=== PATIENT | male | born 1975 | race Caucasian/White ===

== ENCOUNTER 2018-05-13 12:35 | Emergency (ER) | payer OTHER ==
[2018-05-13 13:39] LABS: BASO % 0.3 % (0.0-2.0); EOS # 0.2 K/uL (0.0-0.7); EOS % 2.5 % (0.0-4.0); HEMOGLOBIN 15.4 g/dL (12.0-18.0); LYMPH # 1.2 K/uL (1.0-4.3); LYMPH % 14.6 % (20.0-40.0); MEAN CELL VOLUME 88.6 fL (80.0-94.0); MEAN CORPUSCULAR HEMOGLOBIN 30.4 pg (27.0-31.0); MEAN CORPUSCULAR HGB CONC 34.3 g/dL (33.0-37.0); MEAN PLATELET VOLUME 8.2 fL (7.2-11.7); MONO # 0.9 K/uL (0.0-0.8); MONO % 11.3 % (0.0-10.0); NEUT # 5.7 K/uL (1.8-7.0); NEUT % 71.3 % (50.0-75.0); RBC 5.06 Mil/uL (4.40-5.90); RED CELL DISTRIBUTION WIDTH 13.3 % (11.5-14.5)
[2018-05-13 13:46] LABS: SQUAMOUS EPITHIAL < 1 /hpf (0-5); URINE BILIRUBIN NEGATIVE (NEGATIVE); URINE BLOOD NEGATIVE (NEGATIVE); URINE CLARITY Clear (Clear); URINE COLOR Yellow (YELLOW); URINE GLUCOSE (UA) NORMAL (Normal); URINE LEUKOCYTE ESTERASE NEG Leu/uL (Negative); URINE PROTEIN NEGATIVE (NEGATIVE); URINE UROBILINOGEN NORMAL mg/dL (0.2-1.0)
[2018-05-13 14:03] LABS: ALB/GLOB RATIO 1.1 (1.0-2.1); ALBUMIN 4.3 g/dL (3.5-5.0); ALT/SGPT 54 U/L (21-72); AST/SGOT 33 U/L (17-59); BLOOD UREA NITROGEN 14 mg/dL (9-20); CALCIUM 9.6 mg/dl (8.6-10.4); GFR NON-AFRICAN AMERICAN > 60
--- NOTE | 2018-05-13 14:14 | C.PDOC ---
History Of Present Illness 42 year old male patient presents to the ER with c/o lightheadedness, dizziness and sleepiness for a couple of days. Patient reports he would fall asleep if he stops at a red light or if he is sitting on the couch. Patient states he is sleeping well, no anxiety or insomnia. Patient significantly snores. 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 Patient denies headache, fever, SOB, palpitation and tachycardia. Time Seen by Provider: 05/13/18 12:59 Chief Complaint (Nursing): Dizziness/Lightheaded History Per: Patient History/Exam Limitations: no limitations Onset/Duration Of Symptoms: Days Current Symptoms Are (Timing): Still Present Past Medical History Reviewed: Historical Data, Nursing Documentation, Vital Signs Vital Signs: Last Vital Signs Temp 98.9 F 05/13/18 14:33 Pulse 86 05/13/18 14:33 Resp 16 05/13/18 14:34 BP 129/83 05/13/18 14:33 Pulse Ox 95 05/13/18 14:33 - Medical History PMH: HTN, Hypercholesterolemia Family History: States: No Known Family Hx - Social History Hx Tobacco Use: No Hx Alcohol Use: Yes Hx Substance Use: No - Immunization History Hx Tetanus Toxoid Vaccination: No Hx Influenza Vaccination: Yes (last year) Hx Pneumococcal Vaccination: No Review Of Systems Except As Marked, All Systems Reviewed And Found Negative. Constitutional: Positive for: Other (sleepiness). Negative for: Fever Cardiovascular: Positive for: Light Headedness. Negative for: Palpitations, Other (tachycardic) Respiratory: Negative for: Shortness of Breath Neurological: Positive for: Dizziness. Negative for: Headache Psych: Positive for: Anxiety. Negative for: Other (insomnia) Physical Exam - Physical Exam Appears: Well, Non-toxic, No Acute Distress Skin: Normal Color, Warm, Dry Head: Atraumatic, Normacephalic Eye(s): bilateral: Normal Inspection, PERRL, EOMI Oral Mucosa: Moist Throat: Other (large adenoids and tonsils) Neck: Normal ROM, Supple Chest: Symmetrical, No Deformity Cardiovascular: Rhythm Regular Respiratory: Normal Breath Sounds Extremity: Normal ROM (x4), No Pedal Edema, No Deformity, No Swelling Extremity: Bilateral: Atraumatic Neurological/Psych: Oriented x3, Normal Speech ED Course And Treatment - Laboratory Results Result Diagrams: 05/13/18 13:35 09/03/18 13:35 O2 Sat by Pulse Oximetry: 96 (RA) Medical Decision Making Medical Decision Making: Impression: lightheadedness, dizziness and sleepiness Plans: -- blood work -- UA Reassess: Patient is resting comfortably. Lab results shows no anemia and electrolytes are fine. Patient is instructed to f/u with PMD for sleep lab referral. Disposition Counseled Patient/Family Regarding: Studies Performed, Need For Followup - Disposition Disposition: HOME/ ROUTINE Disposition Time: 14:12 Condition: STABLE Additional Instructions: Follow up with your doctor for referral to sleep lab for evaluation of possible sleep apnea. Instructions: Obstructive Sleep Apnea, Adult (DC) Forms: General Discharge Instructions, [facility] (Italian) - Clinical Impression Clinical Impression: Sleep apnea in adult - Scribe Statement The provider has reviewed the documentation as recorded by the Karynibdave Dougherty Do Provider Attestation: All medical record entries made by the Scribe were at my direction and personally dictated by me. I have reviewed the chart and agree that the record accurately reflects my personal performance of the history, physical exam, medical decision making, and the department course for this patient. I have also personally directed, reviewed, and agree with the discharge instructions and disposition.
[2018-05-13 14:34] VITALS: BP 129/83; PULSE 86; RESP 16; TEMP 98.9
[2018-05-13 15:27] VITALS: O2SAT 96
== END 2018-05-13 14:34 | disposition home or self-care (01) ==
LOC: C.ER 12:35
DX: G47.30 Sleep apnea, unspecified (principal)

== ENCOUNTER 2018-07-27 14:09 | Inpatient (IN) | payer OTHER ==
--- NOTE | 2018-07-27 14:10 | C.PDOC ---
History Of Present Illness 42 yr old male w/ hx of HTN, HLD, DM2 p/w abdominal pain described as throbbing, worse in LLQ. Started 3d ago and has progressed. No nausea vomiting or chest pain. Pt notes first time occurence of pain. Has not had a BM in the same time frame. No trauma or falls. No recent travel abroad. No diarrhea. No new or exotic foods. No urinary complaints. No testicular pain penile pain or rashes. No headache, nausea, vomiting or any other complaints. Time Seen by Provider: 07/27/18 14:10 Past Medical History - Medical History PMH: HTN, Hypercholesterolemia Family History: States: Unknown Family Hx - Social History Hx Tobacco Use: No Hx Alcohol Use: Yes Hx Substance Use: No - Immunization History Hx Tetanus Toxoid Vaccination: No Hx Influenza Vaccination: Yes (last year) Hx Pneumococcal Vaccination: No Review Of Systems Constitutional: Negative for: Fever, Chills, Sweats, Weakness Eyes: Negative for: Pain, Vision Change ENT: Negative for: Ear Pain, Ear Discharge, Nose Congestion, Mouth Pain, Throat Swelling Cardiovascular: Negative for: Chest Pain, Palpitations, Edema, Light Headedness Respiratory: Negative for: Cough, SOB with Excertion, Wheezing Gastrointestinal: Positive for: Abdominal Pain, Constipation. Negative for: Nausea, Vomiting, Diarrhea, Melena, Hematochezia, Hematemesis, Rectal Pain Genitourinary: Negative for: Dysuria, Frequency, Incontinence, Hematuria, Penile Discharge, Scrotal Pain Musculoskeletal: Negative for: Neck Pain, Shoulder Pain, Back Pain Skin: Negative for: Rash Neurological: Negative for: Weakness, Headache Psych: Negative for: Anxiety Physical Exam - Physical Exam Appears: Well, Non-toxic, No Acute Distress Skin: Normal Color, Warm Head: Atraumatic, Normacephalic Eye(s): bilateral: Normal Inspection, PERRL, EOMI Ear(s): Bilateral: Normal Nose: Normal Oral Mucosa: Moist Tongue: Normal Appearing Throat: Normal Neck: Normal, Normal ROM, Supple (no meningeal signs), Other Chest: Symmetrical, No Deformity Cardiovascular: Rhythm Regular Respiratory: Normal Breath Sounds Gastrointestinal/Abdominal: Soft, Tenderness (rlq, lla), No Mass, No Distention, No Guarding Back: Normal Inspection, No CVA Tenderness Extremity: Normal ROM, No Tenderness Neurological/Psych: Oriented x3, Normal Speech, Normal Cognition Gait: Steady ED Course And Treatment - Laboratory Results Result Diagrams: 07/28/18 09:24 07/28/18 09:24 Medical Decision Making Medical Decision Makin yr old male w/ hx of dm, htn, hld p/w abdominal pain constipation, pending CT. Given tachy will seek CT. Pt in NAD. Pending CT + labs NPO [address] Paged vice president medical affairs: Bedside. abx ordered as recommend- cipro flagyl 1750 Dr. Sotelo paged by vice president medical affairs [address] Sotelo: No response [address] Sotelo: No response 1900: Appreciate consult w/ [employer] + Dr. Keys - to be admitted to Dr. Keys service. Fluids. Ofirmev ordered given continued tachy and febrile. ABX continued. Pt in NAD, pain moderately improved, updated w/ plan, pt agreeable Disposition - Disposition Disposition: HOSPITALIZED Disposition Time: 18:20 Condition: GOOD - Clinical Impression Clinical Impression: Perforated bowel
[2018-07-27 14:21] VITALS: BMI 30.9
[2018-07-27] MEDS ORDERED: Iohexol 240 (50 ml) PO STA (14:31)
[2018-07-27] MEDS ORDERED: Sodium Chloride 0.9% 1,000 ML IV SCH (14:45)
[2018-07-27 14:47] LABS: BASO % 0.1 % (0.0-2.0); EOS % 0.1 % (0.0-4.0); HEMOGLOBIN 14.3 g/dL (12.0-18.0); LYMPH # 1.2 K/uL (1.0-4.3); LYMPH % 6.4 % (20.0-40.0); MEAN CELL VOLUME 87.2 fL (80.0-94.0); MEAN CORPUSCULAR HEMOGLOBIN 29.9 pg (27.0-31.0); MEAN CORPUSCULAR HGB CONC 34.3 g/dL (33.0-37.0); MEAN PLATELET VOLUME 8.2 fL (7.2-11.7); MONO # 2.1 K/uL (0.0-0.8); MONO % 11.5 % (0.0-10.0); NEUT # 14.7 K/uL (1.8-7.0); NEUT % 81.9 % (50.0-75.0); PLATELET COUNT 235 K/uL (130-400); RBC 4.79 Mil/uL (4.40-5.90); RED CELL DISTRIBUTION WIDTH 13.3 % (11.5-14.5)
[2018-07-27] MEDS ORDERED: Morphine 4 MG/ML VIAL ONE (14:49)
[2018-07-27] MEDS ORDERED: Sodium Chloride 0.9% 1,000 ML ONE (14:49)
[2018-07-27 15:00] LABS: ALT/SGPT 32 U/L (21-72); AST/SGOT 23 U/L (17-59); BLOOD UREA NITROGEN 11 mg/dL (9-20); CALCIUM 8.2 mg/dl (8.6-10.4); GFR NON-AFRICAN AMERICAN > 60; LIPASE 36 U/L (23-300)
[2018-07-27] MEDS ORDERED: Iohexol 240 (50 ml) ONE (15:01)
[2018-07-27 15:13] LABS: SQUAMOUS EPITHIAL < 1 /hpf (0-5); URINE BACTERIA RARE (<OCC); URINE BILIRUBIN NEGATIVE (NEGATIVE); URINE BLOOD 1+ (NEGATIVE); URINE CLARITY Hazy (Clear); URINE COLOR Amber (YELLOW); URINE GLUCOSE (UA) NORMAL (Normal); URINE LEUKOCYTE ESTERASE NEG Leu/uL (Negative); URINE PROTEIN 2+ mg/dL (NEGATIVE); URINE UROBILINOGEN NORMAL mg/dL (0.2-1.0)
[2018-07-27] MEDS ORDERED: Iodixanol 320 MG/ML 100 ML BOTTLE IV ONE (15:23)
[2018-07-27 15:30] LABS: ANISOCYTOSIS SLIGHT; BANDS 2 % (0-2); LARGE PLATELETS PRESENT; LYMPHOCYTE 7 % (20-40); MONOCYTE 12 % (0-10); NEUTROPHIL 79 % (50-75); PLATELET ESTIMATE NORMAL (NORMAL); TOTAL CELLS COUNTED 100; TOXIC GRANULATION PRESENT
--- NOTE | 2018-07-27 17:28 | CT ---
Date of service: 07/27/2018 PROCEDURE: CT Abdomen and Pelvis with intravenous contrast HISTORY: Abdominal pain COMPARISON: None. TECHNIQUE: Multiple contiguous axial images were performed through the abdomen and pelvis with the use of contrast. Subsequently, sagittal and coronal reformatted images were obtained. Radiation dose: Total exam DLP = 998.05 mGy-cm. This CT exam was performed using one or more of the following dose reduction techniques: Automated exposure control, adjustment of the mA and/or kV according to patient size, and/or use of iterative reconstruction technique. FINDINGS: LOWER THORAX: Scattered atelectasis at the lung bases. LIVER: Mild fatty infiltration liver. GALLBLADDER AND BILE DUCTS: Unremarkable. PANCREAS: Unremarkable. No gross lesion or ductal dilatation. SPLEEN: Unremarkable. ADRENALS: Unremarkable. No mass. KIDNEYS AND URETERS: 1.2 centimeter low-attenuation lesion seen in the midpole of the left kidney demonstrating a Hounsfield unit attenuation of 21, indeterminate. Additional subcentimeter hypodensities in the left kidney, too small to adequately characterize. VASCULATURE: Unremarkable. No aortic aneurysm. Aortic atherosclerotic calcification or mural plaque present. BOWEL: Few distended loops of small bowel seen within the upper abdomen. Sigmoid diverticulosis. Marked thickening of the sigmoid colon. In addition, there appears to be a moderate amount of fluid and fat stranding as well as a small amount of free intraperitoneal air at the level of the sigmoid colon. These findings would be concerning for a perforated acute diverticulitis. Additional etiologies included perforated colitis. Though less likely underlying perforated neoplasm cannot be excluded. Additional etiologies not excluded. Clinical correlation. Free air is noted underneath the right hemidiaphragm. APPENDIX: Probable reactive thickening of a partially imaged appendix. PERITONEUM: Free air and fluid noted within the abdomen and pelvis. LYMPH NODES: Shotty inguinal and para-aortic lymph nodes. BLADDER: Thick-walled urinary bladder. REPRODUCTIVE: Obscured. BONES: Degenerative changes in the spine. Large posterior disc osteophyte complex at the L4-5 level. Few lucencies in the L3 and L4 vertebral bodies. OTHER FINDINGS: None. IMPRESSION: Sigmoid diverticulosis. Marked thickening of the sigmoid colon. In addition, there appears to be a moderate amount of fluid and fat stranding as well as a small amount of free intraperitoneal air at the level of the sigmoid colon. These findings would be concerning for a perforated acute diverticulitis. Additional etiologies included perforated colitis. Though less likely underlying perforated neoplasm cannot be excluded. Additional etiologies not excluded. Clinical correlation. Free air is noted underneath the right hemidiaphragm. Additional findings as above.
[2018-07-27] MEDS ORDERED: Ciprofloxacin 400mg/200ml D5W 400 MG/200 ML BAG IVPB STA (17:40)
[2018-07-27] MEDS ORDERED: Sodium Chloride 0.9% 1,000 ML IV ONE (17:40)
[2018-07-27] MEDS ORDERED: metroNIDAZOLE IV 500 mg/100 ml 500 MG/100 ML BAG IVPB STA (17:40)
[2018-07-27] MEDS ORDERED: Ciprofloxacin 400mg/200ml D5W 400 MG/200 ML BAG IVPB ONE (17:59)
[2018-07-27] MEDS ORDERED: metroNIDAZOLE IV 500 mg/100 ml 500 MG/100 ML BAG ONE (18:00)
[2018-07-27] MEDS ORDERED: HYDROmorphone 0.5 mg/0.5 ml ISec IVP PRN (19:03)
[2018-07-27] MEDS ORDERED: Acetaminophen IV 1,000 MG in Premixed IV 1 EA IV ONE (19:11)
--- NOTE | 2018-07-27 19:16 | CP.PCM.HP ---
History of Present Illness - History of Present Illness History of Present Illness: GENERAL SURGERY HISTORY AND PHYSICAL FOR DR. GOMEZ 42yo M with PMHx of DM, HTN, hyperlipidemia presents to the ED with abdominal pain for 4-5 days. The pain is located in the bilateral lower abdomen and radiates to the groin. The pt took Milk of Mag and tylenol at home with no relief. The pain worsened last night. Pt vomited once this AM. No BM over past 4-5 days except for very small amount of diarrhea after milk of mag. Pt denies hx of constipation, diverticulosis or any abdominal issues. PMHx: DM, HTN, hyperlipidemia Surgeries: none Allergies: penicillins Medications: aspirin 81mg, metformin, ramipril, atorvastatin, vascepa Social hx: denies etoh, tobacco abuse or illicit drug use Fam hx: mother has ESRD, no malignancy in family Present on Admission - Present on Admission Any Indicators Present on Admission: No Review of Systems - Review of Systems All systems: reviewed and no additional remarkable complaints except (as per HPI) Past Patient History - Infectious Disease Hx of Infectious Diseases: None - Past Social History Smoking Status: Never Smoked - CARDIAC Hx Hypercholesterolemia: Yes Hx Hypertension: Yes - PSYCHIATRIC Hx Substance Use: No - SURGICAL HISTORY Hx Surgeries: No - ANESTHESIA Hx Anesthesia: No Meds Allergies/Adverse Reactions: Allergies Allergy/AdvReac Type Severity Reaction Status Date / Time Penicillins Allergy Verified 07/27/18 14:20 Physical Exam - Constitutional Appears: Non-toxic, No Acute Distress - Head Exam Head Exam: ATRAUMATIC, NORMAL INSPECTION - Eye Exam Eye Exam: EOMI, Normal appearance - Respiratory Exam Respiratory Exam: Clear to Auscultation Bilateral, NORMAL BREATHING PATTERN. absent: Wheezes, Respiratory Distress - Cardiovascular Exam Cardiovascular Exam: Tachycardia, REGULAR RHYTHM, +S1, +S2 - GI/Abdominal Exam GI & Abdominal Exam: Distended (mild distended), Tenderness (diffuse tenderness, greater in LLQ, suprapubic, RLQ). absent: Guarding, Rebound, Rigid - Psychiatric Exam Psychiatric exam: Normal Affect, Normal Mood - Skin Skin Exam: Dry, Normal Color, Warm Results - Vital Signs Recent Vital Signs: Last Vital Signs Temp 103.0 F H 07/27/18 18:45 Pulse 126 H 07/27/18 18:45 Resp 17 07/27/18 18:45 BP 133/78 07/27/18 18:45 Pulse Ox 97 07/27/18 18:45 - Labs Result Diagrams: 07/27/18 14:44 07/27/18 14:44 Labs: Laboratory Results - last 24 hr 07/27/18 07/27/18 07/27/18 14:44 14:44 14:57 WBC 18.0 H D RBC 4.79 Hgb 14.3 Hct 41.8 MCV 87.2 MCH 29.9 MCHC 34.3 RDW 13.3 Plt Count 235 MPV 8.2 Neut % (Auto) 81.9 H Lymph % (Auto) 6.4 L [facility] % (Auto) 11.5 H Eos % (Auto) 0.1 Baso % (Auto) 0.1 Neut # (Auto) 14.7 H Lymph # (Auto) 1.2 [facility] # (Auto) 2.1 H Eos # (Auto) 0.0 Baso # (Auto) 0.0 Neutrophils % (Manual) 79 H Band Neutrophils % 2 Lymphocytes % (Manual) 7 L Monocytes % (Manual) 12 H Toxic Granulation Present Platelet Estimate Normal Large Platelets Present Anisocytosis (manual) Slight Sodium 135 Potassium 3.6 Chloride 96 L Carbon Dioxide 26 Anion Gap 17 BUN 11 Creatinine 0.7 L Est GFR ( Amer) > 60 Est GFR (Non-Af Amer) > 60 Random Glucose 204 H Calcium 8.2 L Total Bilirubin 1.1 AST 23 ALT 32 Alkaline Phosphatase 80 Total Protein 8.0 Albumin 4.0 Globulin 4.0 H Albumin/Globulin Ratio 1.0 Lipase 36 Urine Color Gladis Urine Clarity Hazy Urine pH 6.0 Ur Specific [place] 1.027 Urine Protein 2+ H Urine Glucose (UA) Normal Urine Ketones 1+ H Urine Blood 1+ H Urine Nitrate Negative Urine Bilirubin Negative Urine Urobilinogen Normal Ur Leukocyte Esterase Neg Urine RBC (Auto) 3 Ur Squamous Epith Cells < 1 Urine Bacteria Rare Assessment & Plan - Assessment and Plan (Free Text) Assessment: 42yo M with PMHx of DM, HTN, hyperlipidemia who presented to the ED with abdominal pain and found to have micro perf of sigmoid diverticulitis vs colitis - Febrile to 103 - Ofirmev ordered by ED - Tachycardic, hypertensive - Leukocytosis WBC 18.0 - CT: sigmoid diverticulosis, marked thickening of sigmoid colon w/ moderate amount of fluid and fat stranding and small amount of free air at sigmoid and small free air at right diaphragm - strict NPO - IV fluid resuscitation - IV antibiotics: cipro & flagyl - Serial abdominal exams - Discussed plan with Dr. Massimo Shelton PGY-4
[2018-07-27] MEDS: Lactated Ringer's 1,000 ML IV SCH (19:33)
[2018-07-27 20:27] LABS: VENOUS BLOOD GAS BASE EXCESS 3.5 mmol/L (0.0-2.0); VENOUS BLOOD GAS PCO2 35 mmHg (40-60); VENOUS BLOOD GAS PO2 61 mm/Hg (30-55); VENOUS BLOOD PH 7.49 (7.32-7.43)
[2018-07-28] MEDS: Morphine 4 MG/ML VIAL IVP PRN ×2 (00:20→17:27)
[2018-07-28 00:54] LABS: VENOUS BLOOD GAS BASE EXCESS 4.2 mmol/L (0.0-2.0); VENOUS BLOOD GAS PCO2 44 mmHg (40-60); VENOUS BLOOD GAS PO2 39 mm/Hg (30-55); VENOUS BLOOD PH 7.43 (7.32-7.43)
[2018-07-28] MEDS: metroNIDAZOLE IV 500 mg/100 ml 500 MG/100 ML BAG IVPB SCH ×3 (02:07→17:22)
[2018-07-28] MEDS: Lactated Ringer's 1,000 ML IV SCH ×3 (02:26→10:52)
[2018-07-28] MEDS: Ciprofloxacin 400mg/200ml D5W 400 MG/200 ML BAG IVPB SCH ×2 (05:10→18:40)
[2018-07-28] MEDS: (Novolin R) Insulin Human Regular 100 units/ml vial SC SCH ×4 (07:52→21:57)
[2018-07-28 09:34] LABS: BASO % 0.2 % (0.0-2.0); EOS % 0.2 % (0.0-4.0); HEMOGLOBIN 12.5 g/dL (12.0-18.0); LYMPH # 1.1 K/uL (1.0-4.3); LYMPH % 6.2 % (20.0-40.0); MEAN CELL VOLUME 89.1 fL (80.0-94.0); MEAN CORPUSCULAR HEMOGLOBIN 29.7 pg (27.0-31.0); MEAN CORPUSCULAR HGB CONC 33.4 g/dL (33.0-37.0); MEAN PLATELET VOLUME 8.8 fL (7.2-11.7); MONO # 1.8 K/uL (0.0-0.8); MONO % 10.2 % (0.0-10.0); NEUT # 14.4 K/uL (1.8-7.0); NEUT % 83.2 % (50.0-75.0); PLATELET COUNT 208 K/uL (130-400); RBC 4.22 Mil/uL (4.40-5.90); WHITE BLOOD COUNT 17.3 K/uL (4.8-10.8)
--- NOTE | 2018-07-28 09:48 | CP.PCM.PN ---
Subjective - Date & Time of Evaluation Date of Evaluation: 07/28/18 Time of Evaluation: 07:00 - Subjective Subjective: ENERAL SURGERY PROGRESS NOTE FOR DR. GOMEZ Patient seen and examined at bedside. He states that his pain has improved and he mostly just has pain while getting out of bed. He ambulates to the bathroom. Denies nausea or vomiting. Overnight reports multiple trips to bathroom for non bloody diarrhea. Overnight: 1L urine output Objective - Vital Signs/Intake and Output Vital Signs (last 24 hours): Temp Pulse Resp BP Pulse Ox 99.3 F 107 H 20 138/84 95 07/28/18 07:00 07/28/18 08:00 07/28/18 07:00 07/28/18 07:00 07/28/18 07:00 Intake and Output: 07/28/18 07/28/18 06:59 18:59 Intake Total 1000 Balance 1000 - Medications Medications: Current Medications Hydromorphone HCl (Dilaudid) 0.5 mg IVP Q3 PRN PRN Reason: Pain, severe (8-10) Lactated Ringer's (Lactated Ringer's) 1,000 mls @ 150 mls/hr IV .Q6H40M [facility] Last Admin: 07/28/18 02:26 Dose: Not Given Ciprofloxacin (Cipro 400mg/200ml Dsw) 400 mg in 200 mls @ 133 mls/hr IVPB Q12H [facility]; Protocol Last Admin: 07/28/18 05:10 Dose: 133 mls/hr Metronidazole (Flagyl) 500 mg in 100 mls @ 100 mls/hr IVPB Q8H [facility]; Protocol Last Admin: 07/28/18 02:07 Dose: 100 mls/hr Influenza Virus Vaccine (Fluzone Quad [id number]) 60 mcg IM .ONCE ONE Stop: 07/29/18 10:01 Insulin Human Regular (Novolin R) 0 unit SC ACHS [facility]; Protocol Last Admin: 07/28/18 07:52 Dose: Not Given Morphine Sulfate (Morphine) 4 mg IVP Q4 PRN PRN Reason: Pain, moderate (4-7) Last Admin: 07/28/18 00:20 Dose: 4 mg Ondansetron HCl (Zofran Inj) 4 mg IVP Q4 PRN PRN Reason: Nausea/Vomiting Pneumococcal Polyvalent Vaccine (Pneumovax 23 Vaccine) 0.5 ml IM .ONCE ONE Stop: 07/29/18 10:01 - Labs Labs: 07/28/18 09:24 07/27/18 14:44 - Constitutional Appears: Non-toxic, No Acute Distress - Head Exam Head Exam: ATRAUMATIC, NORMAL INSPECTION - Eye Exam Eye Exam: EOMI, Normal appearance - Respiratory Exam Respiratory Exam: NORMAL BREATHING PATTERN. absent: Respiratory Distress - Cardiovascular Exam Cardiovascular Exam: +S1, +S2 - GI/Abdominal Exam GI & Abdominal Exam: Distended, Soft, Tenderness (tender diffusely, more in LLQ, RLQ). absent: Firm, Guarding, Rigid, Rebound - Neurological Exam Neurological Exam: Alert, Awake, Oriented x3 - Psychiatric Exam Psychiatric exam: Normal Affect, Normal Mood - Skin Skin Exam: Dry, Warm Assessment and Plan - Assessment and Plan (Free Text) Assessment: 42yo M with PMHx of DM, HTN, hyperlipidemia who presented to the ED with abdominal pain and found to have micro perf of sigmoid diverticulitis vs colitis, improving - Afebrile since ED, tachycardia improving, good urine output - Leukocytosis WBC 17.0 - K 3.4, replaced - CT: sigmoid diverticulosis, marked thickening of sigmoid colon w/ moderate amount of fluid and fat stranding and small amount of free air at sigmoid and small free air at right diaphragm - strict NPO - IV fluid resuscitation - IV antibiotics: cipro & flagyl - Serial abdominal exams - Discussed plan with Dr. Massimo Shelton PGY-4
[2018-07-28 09:54] LABS: BLOOD UREA NITROGEN 8 mg/dL (9-20); CALCIUM 7.9 mg/dl (8.6-10.4); GFR NON-AFRICAN AMERICAN > 60
[2018-07-28] MEDS ORDERED: ICOSAPENT ETHYL 1 GM PO SCH (10:00)
[2018-07-28] MEDS ORDERED: Home Med 1 UNIT (Atorvastatin Calcium [Atorvastatin Calcium] 10 MG) PO SCH (10:00)
[2018-07-28] MEDS ORDERED: RAMIPRIL 2.5 MG PO SCH (10:00)
[2018-07-28 11:09] LABS: ANISOCYTOSIS SLIGHT; BANDS 1 % (0-2); LARGE PLATELETS PRESENT; LYMPHOCYTE 3 % (20-40); MONOCYTE 11 % (0-10); NEUTROPHIL 83 % (50-75); PLATELET ESTIMATE NORMAL (NORMAL); REACTIVE LYMPHOCYTES 2 % (0-0); TOTAL CELLS COUNTED 100
[2018-07-28 11:10] LABS: POLYCHROMIC SLIGHT; TOXIC GRANULATION PRESENT
--- NOTE | 2018-07-28 18:20 | CP.PCM.PN ---
Subjective - Date & Time of Evaluation Date of Evaluation: 07/28/18 - Subjective Subjective: Patient is seen and examined at bedside. Consult dictated # [id number] Objective - Vital Signs/Intake and Output Vital Signs (last 24 hours): Temp Pulse Resp BP Pulse Ox 99.3 F 112 H 20 142/90 97 07/28/18 17:07 07/28/18 17:07 07/28/18 17:07 07/28/18 17:07 07/28/18 17:07 Intake and Output: 07/28/18 07/28/18 06:59 18:59 Intake Total 1000 1200 Balance 1000 1200 - Medications Medications: Current Medications Hydromorphone HCl (Dilaudid) 0.5 mg IVP Q3 PRN PRN Reason: Pain, severe (8-10) Lactated Ringer's (Lactated Ringer's) 1,000 mls @ 150 mls/hr IV .Q6H40M [facility] Last Admin: 07/28/18 10:52 Dose: 150 mls/hr Ciprofloxacin (Cipro 400mg/200ml Dsw) 400 mg in 200 mls @ 133 mls/hr IVPB Q12H [facility]; Protocol Last Admin: 07/28/18 05:10 Dose: 133 mls/hr Metronidazole (Flagyl) 500 mg in 100 mls @ 100 mls/hr IVPB Q8H [facility]; Protocol Last Admin: 07/28/18 17:22 Dose: 100 mls/hr Influenza Virus Vaccine (Fluzone Quad [id number]) 60 mcg IM .ONCE ONE Stop: 07/29/18 10:01 Insulin Human Regular (Novolin R) 0 unit SC ACHS [facility]; Protocol Last Admin: 07/28/18 17:24 Dose: Not Given Morphine Sulfate (Morphine) 4 mg IVP Q4 PRN PRN Reason: Pain, moderate (4-7) Last Admin: 07/28/18 17:27 Dose: 4 mg Ondansetron HCl (Zofran Inj) 4 mg IVP Q4 PRN PRN Reason: Nausea/Vomiting Pneumococcal Polyvalent Vaccine (Pneumovax 23 Vaccine) 0.5 ml IM .ONCE ONE Stop: 07/29/18 10:01 - Labs Labs: 07/28/18 09:24 07/28/18 09:24
[2018-07-28 19:02] LABS: SQUAMOUS EPITHIAL < 1 /hpf (0-5); URINE BILIRUBIN NEGATIVE (NEGATIVE); URINE BLOOD 1+ (NEGATIVE); URINE CLARITY Clear (Clear); URINE COLOR Yellow (YELLOW); URINE GLUCOSE (UA) NORMAL (Normal); URINE LEUKOCYTE ESTERASE NEG Leu/uL (Negative); URINE PROTEIN 1+ mg/dL (NEGATIVE); URINE UROBILINOGEN NORMAL mg/dL (0.2-1.0)
[2018-07-29] MEDS: Lactated Ringer's 1,000 ML IV SCH ×3 (01:35→21:43)
[2018-07-29] MEDS: metroNIDAZOLE IV 500 mg/100 ml 500 MG/100 ML BAG IVPB SCH ×3 (01:35→18:01)
--- NOTE | 2018-07-29 04:46 | CON ---
DATE: 07/28/2018 REASON FOR MEDICAL CONSULT: Medical management of hypertension and diabetes. REQUESTING PHYSICIAN: Dr. Keys. HISTORY OF PRESENT ILLNESS: Mr. Alicea is a 42-year-old male with past medical history of hypertension, diabetes mellitus, hyperlipidemia diagnosed about 6 months ago who has been following up with PMD who started him on multiple medications about 6 months ago. Came into the ED with complaints of 6 days of lower abdominal pain, progressively getting worse. Initially he thought he was constipated, and he was not able to move his bowels, but yesterday his abdominal pain was worse and had one episode of vomiting, has been having fever on and off up to 101 at home, and he had temperature of 103 in the ED since his abdominal pain got worse and did not have any bowel movement. He came into the ED. In the ED, the patient was found to be having diverticulitis with microperforation versus colitis, and the patient is being admitted to surgical service for further management, medical consult requested for medical management of diabetes, hypertension. When I examined the patient, he feels slightly better than when he came in, his abdominal pain has improved since he came in. Denies any headache or dizziness. Denies any chest pain, shortness of breath, or wheezing. Denies any nausea, vomiting. Denies any leg pains or leg cramps. Denies any neurological symptoms. PAST MEDICAL HISTORY: As described hypertension, diabetes mellitus, hyperlipidemia. PAST SURGICAL HISTORY: Denies any past surgical history. FAMILY HISTORY: Endstage renal disease in mother who gets hemodialysis. PERSONAL HISTORY: He is , having two children. He lives with his mother and children. Working as inventory control in a facility. SOCIAL HISTORY: Denies smoking. Denies any drug abuse. Drinks alcohol socially. ALLERGIES: HE IS ALLERGIC TO PENICILLIN. HOME MEDICATIONS: Include ramipril 2.5 mg daily, Lipitor 10 mg daily, metformin 1000 mg daily, Vascepa 1 g t.i.d., aspirin 81 mg daily. REVIEW OF SYSTEMS: As described in history of present illness. All other systems reviewed and were found to be negative. PHYSICAL EXAMINATION: GENERAL: A young well-built, well-nourished male, lying in bed, in no acute distress. VITAL SIGNS: Blood pressure 142/90, pulse 112, respirations 20, temperature 99.3 degrees Fahrenheit, T-max was 103 yesterday in the ED, O2 sat is 97% on room air. HEENT: Pupils are equal, round, and reacting to light and accommodation. Extraocular muscles intact. No icterus. No pallor. No oral thrush. No pharyngeal congestion. NECK: Supple. No JVD. LUNGS: Bilateral vesicular breath sounds. No wheezing. No rhonchi. CARDIOVASCULAR SYSTEM: S1, S2 are present, regular. ABDOMEN: Soft. Bowel sounds present. Diffuse tenderness noted. CENTRAL NERVOUS SYSTEM: Alert, awake, oriented x3. No focal deficits noted. EXTREMITIES: No edema. Palpable peripheral pulses. LABORATORY DATA: Labs done from ED: WBC 18, hemoglobin 14.3, hematocrit 41.8, platelets 235,000. Sodium 135, potassium 3.6, chloride 96, bicarb 26, BUN 11, creatinine 0.7, glucose 204, calcium 8.2, total bilirubin 1.1, AST 23, ALT 32, alkaline phosphatase 80, total protein 8, albumin 4, lipase 36. UA, specific gravity 1.027, pH 6, protein 2+, ketones 1+, blood 1+. Repeat labs from this morning, potassium 3.4, WBC is 17.3, hemoglobin 12.5. Blood culture so far negative. Abdomen and pelvis CT done in the ED consistent with sigmoid diverticulosis, marked thickening of the sigmoid colon. There appears to be a moderate amount of fluid and fat stranding as well as small amount of free intraperitoneal air at the level of the sigmoid colon. These findings have been concerning for a perforated acute diverticulitis. Free air is noted underneath the right hemidiaphragm. EKG consistent with sinus tachycardia at 115 beats per minute. No acute ST-T changes noted. ASSESSMENT: Young male with history of recently diagnosed hypertension, diabetes mellitus, hyperlipidemia, on multiple medications, admitted for abdominal pain, progressively getting worse, and in the ED, the patient was found to be having possible sigmoid diverticulitis with microperforation versus colitis with elevated WBC count. The patient is being admitted for further management. 1. Microperforation of sigmoid diverticulitis versus colitis. Elevated WBC count, possibly from diverticulitis. 2. History of hypertension. 3. History of diabetes mellitus. 4. History of hyperlipidemia. The patient is being admitted to surgical service. Surgery deferred at this time and to continue with fluid resuscitation, n.p.o., and IV antibiotics with Cipro and Flagyl. As the patient is n.p.o., we will hold all his home medications. We will do Accu-Chek every 6 hours with insulin coverage as needed. Continue with IV fluids and pain medication. We will order IV if his blood pressure is over 160 systolic. We will restart his home medications once the patient is started on p.o. feeds. Thank you for allowing me to participate in this patient's care. We will follow with you. Danae Spicer MD
[2018-07-29] MEDS: Ciprofloxacin 400mg/200ml D5W 400 MG/200 ML BAG IVPB SCH ×2 (05:11→18:01)
[2018-07-29] MEDS: (Novolin R) Insulin Human Regular 100 units/ml vial SC SCH ×4 (07:29→21:41)
[2018-07-29 07:57] LABS: BASO # 0.1 K/uL (0.0-0.2); BASO % 0.4 % (0.0-2.0); EOS # 0.1 K/uL (0.0-0.7); EOS % 0.3 % (0.0-4.0); HEMOGLOBIN 12.3 g/dL (12.0-18.0); LYMPH # 1.1 K/uL (1.0-4.3); LYMPH % 6.2 % (20.0-40.0); MEAN CELL VOLUME 88.3 fL (80.0-94.0); MEAN CORPUSCULAR HEMOGLOBIN 29.8 pg (27.0-31.0); MEAN CORPUSCULAR HGB CONC 33.7 g/dL (33.0-37.0); MEAN PLATELET VOLUME 8.8 fL (7.2-11.7); MONO % 11.5 % (0.0-10.0); NEUT # 13.9 K/uL (1.8-7.0); NEUT % 81.6 % (50.0-75.0); PLATELET COUNT 216 K/uL (130-400); RBC 4.14 Mil/uL (4.40-5.90)
[2018-07-29 08:12] LABS: BLOOD UREA NITROGEN 10 mg/dL (9-20); GFR NON-AFRICAN AMERICAN > 60
[2018-07-29 09:38] LABS: BANDS 1 % (0-2); EOSINOPHIL 1 % (0-4); LARGE PLATELETS PRESENT; LYMPHOCYTE 8 % (20-40); MONOCYTE 10 % (0-10); NEUTROPHIL 80 % (50-75); PLATELET ESTIMATE NORMAL (NORMAL); TOTAL CELLS COUNTED 100
[2018-07-29] MEDS ORDERED: Pneumococcal 23-Valent Vaccine IM ONE (10:00)
[2018-07-29] MEDS ORDERED: Influenza Vaccine 60 MCG/0.5 ML SYR (3 yr & up) IM ONE (10:00)
--- NOTE | 2018-07-29 15:17 | CP.PCM.PN ---
Subjective - Date & Time of Evaluation Date of Evaluation: 07/29/18 Time of Evaluation: 15:17 - Subjective Subjective: Progress note dictated #[id number] Objective - Vital Signs/Intake and Output Vital Signs (last 24 hours): Temp Pulse Resp BP Pulse Ox 99.0 F 100 H 20 136/79 95 07/29/18 07:45 07/29/18 07:45 07/29/18 07:45 07/29/18 07:45 07/29/18 07:45 Intake and Output: 07/29/18 07/29/18 06:59 18:59 Intake Total 1200 Output Total 801 Balance 399 - Medications Medications: Current Medications Hydromorphone HCl (Dilaudid) 0.5 mg IVP Q3 PRN PRN Reason: Pain, severe (8-10) Lactated Ringer's (Lactated Ringer's) 1,000 mls @ 150 mls/hr IV .Q6H40M [facility] Last Admin: 07/29/18 01:35 Dose: 150 mls/hr Ciprofloxacin (Cipro 400mg/200ml Dsw) 400 mg in 200 mls @ 133 mls/hr IVPB Q12H [facility]; Protocol Last Admin: 07/29/18 05:11 Dose: 133 mls/hr Metronidazole (Flagyl) 500 mg in 100 mls @ 100 mls/hr IVPB Q8H [facility]; Protocol Last Admin: 07/29/18 09:40 Dose: 100 mls/hr Potassium Chloride (Potassium Chloride 20 Meq/100 Ml) 20 meq in 100 mls @ 50 mls/hr IVPB ONCE ONE Stop: 07/29/18 17:13 Insulin Human Regular (Novolin R) 0 unit SC ACHS [facility]; Protocol Last Admin: 07/29/18 12:16 Dose: Not Given Morphine Sulfate (Morphine) 4 mg IVP Q4 PRN PRN Reason: Pain, moderate (4-7) Last Admin: 07/28/18 17:27 Dose: 4 mg Ondansetron HCl (Zofran Inj) 4 mg IVP Q4 PRN PRN Reason: Nausea/Vomiting - Labs Labs: 07/29/18 07:48 07/29/18 07:48
--- NOTE | 2018-07-29 18:55 | CP.PCM.PN ---
Subjective - Date & Time of Evaluation Date of Evaluation: 07/29/18 Time of Evaluation: 09:00 - Subjective Subjective: Surgery: Dr. Keys Pt seen and examined. No acute overnight events. States he feels well and abdominal pain has improved. Pt denies any episodes of nausea/vomiting and admits to flatus as well as diarrhea. Pt ambulating without difficulty. Denies fevers/chills. Objective - Vital Signs/Intake and Output Vital Signs (last 24 hours): Temp Pulse Resp BP Pulse Ox 101.5 F H 102 H 20 126/81 96 07/29/18 16:00 07/29/18 16:00 07/29/18 16:00 07/29/18 16:00 07/29/18 16:00 Intake and Output: 07/29/18 07/29/18 06:59 18:59 Intake Total 1200 Output Total 801 Balance 399 - Medications Medications: Current Medications Hydromorphone HCl (Dilaudid) 0.5 mg IVP Q3 PRN PRN Reason: Pain, severe (8-10) Lactated Ringer's (Lactated Ringer's) 1,000 mls @ 150 mls/hr IV .Q6H40M [facility] Last Admin: 07/29/18 18:03 Dose: Not Given Ciprofloxacin (Cipro 400mg/200ml Dsw) 400 mg in 200 mls @ 133 mls/hr IVPB Q12H [facility]; Protocol Last Admin: 07/29/18 18:01 Dose: 133 mls/hr Metronidazole (Flagyl) 500 mg in 100 mls @ 100 mls/hr IVPB Q8H [facility]; Protocol Last Admin: 07/29/18 18:01 Dose: 100 mls/hr Insulin Human Regular (Novolin R) 0 unit SC ACHS [facility]; Protocol Last Admin: 07/29/18 18:03 Dose: Not Given Morphine Sulfate (Morphine) 4 mg IVP Q4 PRN PRN Reason: Pain, moderate (4-7) Last Admin: 07/28/18 17:27 Dose: 4 mg Ondansetron HCl (Zofran Inj) 4 mg IVP Q4 PRN PRN Reason: Nausea/Vomiting - Labs Labs: 07/29/18 07:48 07/29/18 07:48 - Constitutional Appears: Well, No Acute Distress - Head Exam Head Exam: ATRAUMATIC, NORMOCEPHALIC - Eye Exam Eye Exam: Normal appearance - ENT Exam ENT Exam: Mucous Membranes Moist - Respiratory Exam Respiratory Exam: NORMAL BREATHING PATTERN - Cardiovascular Exam Cardiovascular Exam: Tachycardia - GI/Abdominal Exam GI & Abdominal Exam: Guarding (voluntary), Soft, Tenderness (LLQ/suprapubic). absent: Distended, Rebound - Neurological Exam Neurological Exam: Alert, Awake, Oriented x3 - Skin Skin Exam: Dry, Warm Assessment and Plan - Assessment and Plan (Free Text) Assessment: 42M with acute diverticulitis with microperf Plan: - cont IV ABx - Keep NPO with IVF - pain control - serial abdominal exams - d/w Dr. Massimo Tony
--- NOTE | 2018-07-29 23:05 | CARD ---
APPROVED REPORT Date of service: 07/27/2018 EKG Measurement Heart [id number] <Conclusion> Sinus tachycardia Otherwise normal ECG
[2018-07-30] MEDS: Lactated Ringer's 1,000 ML IV SCH ×4 (00:35→15:52)
[2018-07-30] MEDS: metroNIDAZOLE IV 500 mg/100 ml 500 MG/100 ML BAG IVPB SCH ×3 (02:10→18:19)
--- NOTE | 2018-07-30 04:33 | CON ---
DATE: 07/29/2018 SUBJECTIVE: The patient was seen and examined at bedside. The patient is feeling slightly better, less pain in the abdomen. Denies any nausea or vomiting. Still the patient is kept n.p.o. PHYSICAL EXAMINATION: GENERAL: Young male, sitting in chair, in no acute distress. VITAL SIGNS: Blood pressure 126/81. All the blood pressure readings are in 130s and 140s systolic. Pulse 100, respirations 20, temperature 101.5 degrees Fahrenheit, O2 sat is 96% on room air. Intake is 2400. Output is 801 mL. HEENT: Pupils equal, round and reacting to light and accommodation. Extraocular muscles intact. No icterus. No pallor. No oral thrush. No pharyngeal congestion. NECK: Supple. No JVD. LUNGS: Bilateral vesicular breath sounds. No wheezing. No rhonchi. CARDIOVASCULAR SYSTEM: S1 and S2 present, regular. ABDOMEN: Diffuse tenderness noted. Bowel sounds present. CENTRAL NERVOUS SYSTEM: Alert, awake, oriented x3. No focal deficits noted. EXTREMITIES: No edema. Palpable peripheral pulses. MEDICATIONS: Include Tylenol 650 mg every 6 hours as needed, ciprofloxacin 400 mg IV every 12 hours, Dilaudid 0.5 mg IV push every 3 hours as needed, Ringer's lactate 150 mL per hour, Flagyl 500 mg IV every 8 hours, morphine 4 mg IV push every 4 hours p.r.n., Zofran 4 mg IV push every 4 hours as needed. LABORATORY DATA: Labs from this morning. WBC 17, hemoglobin 12.3, hematocrit 36.6. Sodium 131, potassium 3.1, chloride 97, bicarb 26, BUN 10, creatinine 0.7, glucose 174, calcium 8. Blood cultures and urine culture negative so far. ASSESSMENT AND PLAN: Young male with past medical history of hypertension, hyperlipidemia, diabetes mellitus; who has been on medications for the past 6 months, admitted for possible microperforation of the sigmoid diverticulitis versus colitis with elevated WBC count and hypokalemia. Improving white count. Potassium is being supplemented. We will check magnesium level in a.m. The patient's symptoms are clinically improving. His blood pressure is stable, not requiring any IV antihypertensives. Accu-Cheks are fair. We will hold hypoglycemics and antihypertensive medication. We will repeat labs in a.m. Continue with Tylenol as needed and continue with current antibiotics. Danae Spicer MD
[2018-07-30] MEDS: Ciprofloxacin 400mg/200ml D5W 400 MG/200 ML BAG IVPB SCH ×2 (06:00→18:15)
[2018-07-30 07:06] LABS: BASO # 0.1 K/uL (0.0-0.2); BASO % 0.7 % (0.0-2.0); EOS # 0.2 K/uL (0.0-0.7); EOS % 1.1 % (0.0-4.0); HEMOGLOBIN 12.8 g/dL (12.0-18.0); LYMPH # 1.3 K/uL (1.0-4.3); LYMPH % 8.5 % (20.0-40.0); MEAN CELL VOLUME 87.6 fL (80.0-94.0); MEAN CORPUSCULAR HEMOGLOBIN 29.7 pg (27.0-31.0); MEAN CORPUSCULAR HGB CONC 33.9 g/dL (33.0-37.0); MEAN PLATELET VOLUME 8.8 fL (7.2-11.7); MONO # 1.8 K/uL (0.0-0.8); MONO % 12.3 % (0.0-10.0); NEUT # 11.4 K/uL (1.8-7.0); NEUT % 77.4 % (50.0-75.0); PLATELET COUNT 236 K/uL (130-400); RBC 4.29 Mil/uL (4.40-5.90); RED CELL DISTRIBUTION WIDTH 13.2 % (11.5-14.5); WHITE BLOOD COUNT 14.8 K/uL (4.8-10.8)
[2018-07-30 07:20] LABS: BLOOD UREA NITROGEN 10 mg/dL (9-20); CALCIUM 8.1 mg/dl (8.6-10.4); GFR NON-AFRICAN AMERICAN > 60
[2018-07-30] MEDS: (Novolin R) Insulin Human Regular 100 units/ml vial SC SCH ×5 (07:44→21:20)
[2018-07-30 09:11] LABS: BANDS 1 % (0-2); EOSINOPHIL 1 % (0-4); LYMPHOCYTE 5 % (20-40); MONOCYTE 9 % (0-10); NEUTROPHIL 84 % (50-75); TOTAL CELLS COUNTED 100
[2018-07-30 09:12] LABS: PLATELET ESTIMATE NORMAL (NORMAL)
--- NOTE | 2018-07-30 09:54 | CP.PCM.PN ---
Subjective - Date & Time of Evaluation Date of Evaluation: 07/30/18 Time of Evaluation: 07:00 - Subjective Subjective: GENERAL SURGERY PROGRESS NOTE FOR DR. GOMEZ Patient seen and examined at bedside. He states that his pain is much better. He denies nausea or vomiting. States he is having non-bloody diarrhea every couple hours. Denies having an appetite. Objective - Vital Signs/Intake and Output Vital Signs (last 24 hours): Temp Pulse Resp BP Pulse Ox 98 F 95 H 20 128/82 98 07/30/18 07:00 07/30/18 07:00 07/30/18 07:00 07/30/18 07:00 07/30/18 07:00 Intake and Output: 07/30/18 07/30/18 06:59 18:59 Intake Total 2250 Output Total 1300 Balance 950 - Medications Medications: Current Medications Acetaminophen (Tylenol 650 Mg Supp) 650 mg DC Q6 PRN PRN Reason: Fever >100.4 F Hydromorphone HCl (Dilaudid) 0.5 mg IVP Q3 PRN PRN Reason: Pain, severe (8-10) Lactated Ringer's (Lactated Ringer's) 1,000 mls @ 150 mls/hr IV .Q6H40M [facility] Last Admin: 07/30/18 00:35 Dose: Not Given Ciprofloxacin (Cipro 400mg/200ml Dsw) 400 mg in 200 mls @ 133 mls/hr IVPB Q12H [facility]; Protocol Last Admin: 07/30/18 06:00 Dose: 133 mls/hr Metronidazole (Flagyl) 500 mg in 100 mls @ 100 mls/hr IVPB Q8H [facility]; Protocol Last Admin: 07/30/18 02:10 Dose: 100 mls/hr Potassium Chloride (Potassium Chloride 10 Meq/100 Ml) 10 meq in 100 mls @ 50 mls/hr IVPB Q2 [facility] Stop: 07/30/18 13:59 Insulin Human Regular (Novolin R) 0 unit SC ACHS [facility]; Protocol Last Admin: 07/30/18 07:45 Dose: Not Given Morphine Sulfate (Morphine) 4 mg IVP Q4 PRN PRN Reason: Pain, moderate (4-7) Last Admin: 07/28/18 17:27 Dose: 4 mg Ondansetron HCl (Zofran Inj) 4 mg IVP Q4 PRN PRN Reason: Nausea/Vomiting - Labs Labs: 07/30/18 06:58 07/30/18 06:58 - Constitutional Appears: Non-toxic, No Acute Distress - Head Exam Head Exam: ATRAUMATIC, NORMAL INSPECTION - Eye Exam Eye Exam: EOMI, Normal appearance - Respiratory Exam Respiratory Exam: NORMAL BREATHING PATTERN. absent: Respiratory Distress - Cardiovascular Exam Cardiovascular Exam: +S1, +S2 - GI/Abdominal Exam GI & Abdominal Exam: Soft, Tenderness (tender in LLQ, suprapubic, RLQ). absent: Distended, Firm, Guarding, Rigid, Rebound - Neurological Exam Neurological Exam: Alert, Awake, Oriented x3 - Psychiatric Exam Psychiatric exam: Normal Affect, Normal Mood - Skin Skin Exam: Dry, Normal Color Assessment and Plan - Assessment and Plan (Free Text) Assessment: 42yo M with PMHx of DM, HTN, hyperlipidemia who presented to the ED with abdominal pain and found to have micro perf of sigmoid diverticulitis vs colitis, improving - Tmax 101.5, currently afebrile, HR range 99-112 - Leukocytosis WBC 14.8, down from 17.0 - K 3.3, replaced - strict NPO - IV fluid resuscitation - IV antibiotics: cipro & flagyl - Serial abdominal exams - Discussed plan with Dr. Massimo Shelton PGY-4
--- NOTE | 2018-07-30 16:33 | CP.PCM.PN ---
Subjective - Date & Time of Evaluation Date of Evaluation: 07/30/18 Time of Evaluation: 16:32 - Subjective Subjective: Progress note dictated #[id number] Objective - Vital Signs/Intake and Output Vital Signs (last 24 hours): Temp Pulse Resp BP Pulse Ox 98 F 95 H 20 128/82 98 07/30/18 07:00 07/30/18 07:00 07/30/18 07:00 07/30/18 07:00 07/30/18 07:00 Intake and Output: 07/30/18 07/30/18 06:59 18:59 Intake Total 2250 1200 Output Total 1300 500 Balance 950 700 - Medications Medications: Current Medications Acetaminophen (Tylenol 650 Mg Supp) 650 mg DC Q6 PRN PRN Reason: Fever >100.4 F Hydromorphone HCl (Dilaudid) 0.5 mg IVP Q3 PRN PRN Reason: Pain, severe (8-10) Lactated Ringer's (Lactated Ringer's) 1,000 mls @ 150 mls/hr IV .Q6H40M [facility] Last Admin: 07/30/18 15:52 Dose: 150 mls/hr Ciprofloxacin (Cipro 400mg/200ml Dsw) 400 mg in 200 mls @ 133 mls/hr IVPB Q12H [facility]; Protocol Last Admin: 07/30/18 06:00 Dose: 133 mls/hr Metronidazole (Flagyl) 500 mg in 100 mls @ 100 mls/hr IVPB Q8H [facility]; Protocol Last Admin: 07/30/18 11:00 Dose: 100 mls/hr Insulin Human Regular (Novolin R) 0 unit SC ACHS [facility]; Protocol Last Admin: 07/30/18 11:30 Dose: Not Given Morphine Sulfate (Morphine) 4 mg IVP Q4 PRN PRN Reason: Pain, moderate (4-7) Last Admin: 07/28/18 17:27 Dose: 4 mg Ondansetron HCl (Zofran Inj) 4 mg IVP Q4 PRN PRN Reason: Nausea/Vomiting - Labs Labs: 07/30/18 06:58 07/30/18 06:58
[2018-07-31] MEDS: Lactated Ringer's 1,000 ML IV SCH (00:16)
--- NOTE | 2018-07-31 01:41 | PN ---
DATE: 07/30/2018 SUBJECTIVE: The patient was seen and examined at bedside. The patient is feeling slightly better than yesterday. Pain is much better, having bowel movement which is soft, formed bowels. Denied any new complaints. OBJECTIVE: GENERAL: Young male, lying in bed, in no acute distress. VITAL SIGNS: Blood pressure 124/81, pulse 102, respirations 20, temperature 100.1 degrees Fahrenheit, O2 saturation is 98% on room air. HEENT: Pupils equal, round and reacting to light and accommodation. Extraocular muscles intact. No icterus. No pallor. No oral thrush. No pharyngeal congestion. NECK: Supple. No JVD. LUNGS: Bilateral vesicular breath sounds. No wheezing. No rhonchi. CARDIOVASCULAR SYSTEM: S1 and S2 are present, regular. ABDOMEN: Soft. Bowel sounds present. Tenderness decreased. CENTRAL NERVOUS SYSTEM: Alert, awake, and oriented x3. No focal deficits noted. EXTREMITIES: No edema. Palpable peripheral pulses. MEDICATIONS: Tylenol as needed, ciprofloxacin 400 mg IV every 12 hours, Dilaudid as needed, Flagyl 500 mg IV every 8 hours, Morphine for pain as needed, Zofran as needed for vomiting. LABORATORY DATA: Labs from today: WBC 14.8, hemoglobin 12.8, hematocrit 37.6, platelets 236. Sodium 136, potassium 3.3, chloride 96, bicarb 29, BUN 10, creatinine 0.7, glucose 137, calcium 8.1. Magnesium ordered but never done. ASSESSMENT AND PLAN: Young male with history of hypertension, diabetes mellitus, hyperlipidemia admitted for microperforation of the diverticulitis versus colitis with elevated WBC count and hypokalemia, on Cipro and Flagyl. Blood pressure is stable without any medication. Continue with current medications. Supplement potassium. Accu-Cheks are fair. Continue with deep venous thrombosis and gastrointestinal prophylaxis. Monitor WBC count. Danae Spicer MD
[2018-07-31] MEDS: metroNIDAZOLE IV 500 mg/100 ml 500 MG/100 ML BAG IVPB SCH ×3 (02:06→17:28)
[2018-07-31] MEDS: Ciprofloxacin 400mg/200ml D5W 400 MG/200 ML BAG IVPB SCH ×2 (05:20→16:28)
[2018-07-31] MEDS ORDERED: metroNIDAZOLE IV 500 mg/100 ml 500 MG/100 ML BAG IVPB SCH (05:45)
[2018-07-31] MEDS ORDERED: Ciprofloxacin 400mg/200ml D5W 400 MG/200 ML BAG IVPB SCH (06:45)
[2018-07-31] MEDS: Potassium Ch 20mEq in D5-1/2NS 1,000 ML IV SCH ×2 (07:10→14:14)
[2018-07-31 08:07] VITALS: O2SAT 97
[2018-07-31] MEDS: (Novolin R) Insulin Human Regular 100 units/ml vial SC SCH ×4 (08:30→21:40)
--- NOTE | 2018-07-31 10:38 | CP.PCM.PN ---
Subjective - Date & Time of Evaluation Date of Evaluation: 07/31/18 Time of Evaluation: 10:39 - Subjective Subjective: Improving, doubt need for surgical intervention. Will try po fluids Objective - Vital Signs/Intake and Output Vital Signs (last 24 hours): Temp Pulse Resp BP Pulse Ox 98.3 F 93 H 20 121/74 97 07/31/18 07:10 07/31/18 07:10 07/31/18 07:10 07/31/18 07:10 07/31/18 07:10 Intake and Output: 07/31/18 07/31/18 06:59 18:59 Intake Total 525 Balance 525 - Medications Medications: Current Medications Acetaminophen (Tylenol 650 Mg Supp) 650 mg [place] Q6 PRN PRN Reason: Fever >100.4 F Hydromorphone HCl (Dilaudid) 0.5 mg IVP Q3 PRN PRN Reason: Pain, severe (8-10) Potassium Chloride/Dextrose/Sod Cl (Potassium Chl 20 Meq In D5-1/2ns) 1,000 mls @ 150 mls/hr IV .Q6H40M [facility] Last Admin: 07/31/18 07:10 Dose: 150 mls/hr Ciprofloxacin (Cipro 400mg/200ml Dsw) 400 mg in 200 mls @ 133 mls/hr IVPB Q12H [facility]; Protocol Metronidazole (Flagyl) 500 mg in 100 mls @ 100 mls/hr IVPB Q8H [facility]; Protocol Insulin Human Regular (Novolin R) 0 unit SC ACHS [facility]; Protocol Last Admin: 07/31/18 08:30 Dose: Not Given Morphine Sulfate (Morphine) 4 mg IVP Q4 PRN PRN Reason: Pain, moderate (4-7) Last Admin: 07/28/18 17:27 Dose: 4 mg Ondansetron HCl (Zofran Inj) 4 mg IVP Q4 PRN PRN Reason: Nausea/Vomiting - Labs Labs: 07/30/18 06:58 07/30/18 06:58 Assessment and Plan (1) Diverticulitis of intestine with perforation Status: Acute
--- NOTE | 2018-07-31 11:24 | CP.PCM.PN ---
Subjective - Date & Time of Evaluation Date of Evaluation: 07/31/18 Time of Evaluation: 07:00 - Subjective Subjective: GENERAL SURGERY PROGRESS NOTE FOR DR. GOMEZ Patient seen and examined at bedside. He states that his pain is improving. He denies nausea or vomiting. States he is still having non-bloody diarrhea every couple hours. He is ambulating in the halls. Objective - Vital Signs/Intake and Output Vital Signs (last 24 hours): Temp Pulse Resp BP Pulse Ox 98.3 F 93 H 20 121/74 97 07/31/18 07:10 07/31/18 07:10 07/31/18 07:10 07/31/18 07:10 07/31/18 07:10 Intake and Output: 07/31/18 07/31/18 06:59 18:59 Intake Total 525 Balance 525 - Medications Medications: Current Medications Acetaminophen (Tylenol 650 Mg Supp) 650 mg GA Q6 PRN PRN Reason: Fever >100.4 F Potassium Chloride/Dextrose/Sod Cl (Potassium Chl 20 Meq In D5-1/2ns) 1,000 mls @ 150 mls/hr IV .Q6H40M [facility] Last Admin: 07/31/18 07:10 Dose: 150 mls/hr Ciprofloxacin (Cipro 400mg/200ml Dsw) 400 mg in 200 mls @ 133 mls/hr IVPB Q12H [facility]; Protocol Metronidazole (Flagyl) 500 mg in 100 mls @ 100 mls/hr IVPB Q8H [facility]; Protocol Last Admin: 07/31/18 10:49 Dose: 100 mls/hr Insulin Human Regular (Novolin R) 0 unit SC ACHS [facility]; Protocol Last Admin: 07/31/18 08:30 Dose: Not Given Morphine Sulfate (Morphine) 4 mg IVP Q4 PRN PRN Reason: Pain, moderate (4-7) Last Admin: 07/28/18 17:27 Dose: 4 mg Ondansetron HCl (Zofran Inj) 4 mg IVP Q4 PRN PRN Reason: Nausea/Vomiting - Labs Labs: 07/30/18 06:58 07/30/18 06:58 - Constitutional Appears: Non-toxic, No Acute Distress - Head Exam Head Exam: ATRAUMATIC, NORMAL INSPECTION - Eye Exam Eye Exam: EOMI, Normal appearance - Respiratory Exam Respiratory Exam: NORMAL BREATHING PATTERN. absent: Respiratory Distress - Cardiovascular Exam Cardiovascular Exam: +S1, +S2 - GI/Abdominal Exam GI & Abdominal Exam: Soft, Tenderness (tender in LLQ, RLQ, suprapubic area). absent: Distended, Firm, Guarding, Rigid, Rebound - Neurological Exam Neurological Exam: Alert, Awake, Oriented x3 - Psychiatric Exam Psychiatric exam: Normal Affect, Normal Mood - Skin Skin Exam: Dry, Warm Assessment and Plan - Assessment and Plan (Free Text) Assessment: 42yo M with PMHx of DM, HTN, hyperlipidemia who presented to the ED with abdominal pain and found to have micro perf of sigmoid diverticulitis vs colitis, improving - Will FU AM labs - Improving clinically, will start CLD - IV fluid resuscitation - IV antibiotics: cipro & flagyl - Serial abdominal exams - Discussed plan with Dr. Massimo Shelton PGY-4
[2018-07-31] MEDS: Saccharomyces Boulardi 250 mg Cap PO SCH ×2 (14:10→17:28)
[2018-07-31 14:12] LABS: HEMOGLOBIN 12.7 g/dL (12.0-18.0); MEAN CELL VOLUME 87.8 fL (80.0-94.0); MEAN CORPUSCULAR HEMOGLOBIN 29.5 pg (27.0-31.0); MEAN CORPUSCULAR HGB CONC 33.6 g/dL (33.0-37.0); MEAN PLATELET VOLUME 8.4 fL (7.2-11.7); RBC 4.32 Mil/uL (4.40-5.90); WHITE BLOOD COUNT 12.5 K/uL (4.8-10.8)
[2018-07-31 14:45] LABS: BLOOD UREA NITROGEN 7 mg/dL (9-20); CALCIUM 7.9 mg/dl (8.6-10.4); GFR NON-AFRICAN AMERICAN > 60
[2018-08-01] MEDS: Potassium Ch 20mEq in D5-1/2NS 1,000 ML IV SCH ×2 (00:18→10:15)
[2018-08-01 02:00] VITALS: BP 134/83; PULSE 94; RESP 20; TEMP 98.6
[2018-08-01] MEDS: metroNIDAZOLE IV 500 mg/100 ml 500 MG/100 ML BAG IVPB SCH ×2 (02:04→09:52)
[2018-08-01] MEDS: Ciprofloxacin 400mg/200ml D5W 400 MG/200 ML BAG IVPB SCH (05:26)
[2018-08-01 08:51] LABS: BASO % 0.3 % (0.0-2.0); EOS # 0.2 K/uL (0.0-0.7); EOS % 1.2 % (0.0-4.0); HEMOGLOBIN 12.9 g/dL (12.0-18.0); LYMPH # 1.1 K/uL (1.0-4.3); LYMPH % 7.4 % (20.0-40.0); MEAN CELL VOLUME 88.8 fL (80.0-94.0); MEAN CORPUSCULAR HEMOGLOBIN 29.7 pg (27.0-31.0); MEAN CORPUSCULAR HGB CONC 33.5 g/dL (33.0-37.0); MEAN PLATELET VOLUME 8.8 fL (7.2-11.7); MONO # 1.7 K/uL (0.0-0.8); MONO % 11.2 % (0.0-10.0); NEUT # 12.4 K/uL (1.8-7.0); NEUT % 79.9 % (50.0-75.0); PLATELET COUNT 256 K/uL (130-400); RBC 4.34 Mil/uL (4.40-5.90); RED CELL DISTRIBUTION WIDTH 12.8 % (11.5-14.5); WHITE BLOOD COUNT 15.5 K/uL (4.8-10.8)
[2018-08-01 09:19] LABS: BLOOD UREA NITROGEN 6 mg/dL (9-20); GFR NON-AFRICAN AMERICAN > 60
--- NOTE | 2018-08-01 09:57 | CP.PCM.DIS ---
Provider - Provider Date of Admission: 07/27/18 18:55 Attending physician: Tomeka Keys MD Consults: Dr. Spicer Time Spent in preparation of Discharge (in minutes): 30 Diagnosis - Discharge Diagnosis (1) Diverticulitis of intestine with perforation Status: Acute Hospital Course - Lab Results Lab Results: Micro Results 07/27/18 15:40 Blood Blood Culture - Preliminary NO GROWTH AFTER 4 DAYS 07/27/18 15:30 Blood Blood Culture - Preliminary NO GROWTH AFTER 4 DAYS 07/28/18 18:25 Urine,Clean Catch Urine Culture - Final No Growth (<1,000 CFU/ML) 07/28/18 14:45 Urine Urine Culture - Final No Growth (<1,000 CFU/ML) Most Recent Lab Values WBC 15.5 K/uL (4.8-10.8) H 08/01/18 08:43 RBC 4.34 Mil/uL (4.40-5.90) L 08/01/18 08:43 Hgb 12.9 g/dL (12.0-18.0) 08/01/18 08:43 Hct 38.6 % (35.0-51.0) 08/01/18 08:43 MCV 88.8 fL (80.0-94.0) 08/01/18 08:43 MCH 29.7 pg (27.0-31.0) 08/01/18 08:43 MCHC 33.5 g/dL (33.0-37.0) 08/01/18 08:43 RDW 12.8 % (11.5-14.5) 08/01/18 08:43 Plt Count 256 K/uL (130-400) 08/01/18 08:43 MPV 8.8 fL (7.2-11.7) 08/01/18 08:43 Neut % (Auto) 79.9 % (50.0-75.0) H 08/01/18 08:43 Lymph % (Auto) 7.4 % (20.0-40.0) L 08/01/18 08:43 [place] % (Auto) 11.2 % (0.0-10.0) H 08/01/18 08:43 Eos % (Auto) 1.2 % (0.0-4.0) 08/01/18 08:43 Baso % (Auto) 0.3 % (0.0-2.0) 08/01/18 08:43 Neut # (Auto) 12.4 K/uL (1.8-7.0) H 08/01/18 08:43 Lymph # (Auto) 1.1 K/uL (1.0-4.3) 08/01/18 08:43 [place] # (Auto) 1.7 K/uL (0.0-0.8) H 08/01/18 08:43 Eos # (Auto) 0.2 K/uL (0.0-0.7) 08/01/18 08:43 Baso # (Auto) 0.0 K/uL (0.0-0.2) 08/01/18 08:43 Neutrophils % (Manual) 84 % (50-75) H 07/30/18 06:58 Band Neutrophils % 1 % (0-2) 07/30/18 06:58 Lymphocytes % (Manual) 5 % (20-40) L 07/30/18 06:58 Reactive Lymphs % 2 % (0-0) H 07/28/18 09:24 Monocytes % (Manual) 9 % (0-10) 07/30/18 06:58 Eosinophils % (Manual) 1 % (0-4) 07/30/18 06:58 Toxic Granulation Present 07/28/18 09:24 Platelet Estimate Normal (NORMAL) 07/30/18 06:58 Large Platelets Present 07/29/18 07:48 RBC Morphology Normal 07/30/18 06:58 Polychromasia Slight 07/28/18 09:24 Anisocytosis (manual) Slight 07/28/18 09:24 pO2 39 mm/Hg (30-55) 07/28/18 00:45 VBG pH 7.43 (7.32-7.43) 07/28/18 00:45 VBG pCO2 44 mmHg (40-60) 07/28/18 00:45 VBG HCO3 27.6 mmol/L 07/28/18 00:45 VBG Total CO2 30.6 mmol/L (22-28) H 07/28/18 00:45 VBG O2 Sat (Calc) 80.4 % (40-65) H 07/28/18 00:45 VBG Base Excess 4.2 mmol/L (0.0-2.0) H 07/28/18 00:45 VBG Potassium 3.4 mmol/L (3.6-5.2) L 07/28/18 00:45 Sodium 136.0 mmol/l (132-148) 07/28/18 00:45 Chloride 105.0 mmol/L (98-107) 07/28/18 00:45 Glucose 155 mg/dl (75-110) H 07/28/18 00:45 Lactate 1.2 mmol/L (0.7-2.1) 07/28/18 00:45 Sodium 135 mmol/L (132-148) 08/01/18 08:43 Potassium 3.2 mmol/L (3.6-5.2) L 08/01/18 08:43 Chloride 97 mmol/L (98-107) L 08/01/18 08:43 Carbon Dioxide 27 mmol/L (22-30) 08/01/18 08:43 Anion Gap 14 (10-20) 08/01/18 08:43 BUN 6 mg/dL (9-20) L 08/01/18 08:43 Creatinine 0.6 mg/dL (0.8-1.5) L 08/01/18 08:43 Est GFR ( Amer) > 60 08/01/18 08:43 Est GFR (Non-Af Amer) > 60 08/01/18 08:43 POC Glucose (mg/dL) 167 mg/dL (65-110) H 07/31/18 21:35 Random Glucose 188 mg/dL (75-110) H 08/01/18 08:43 Calcium 8.0 mg/dl (8.6-10.4) L 08/01/18 08:43 Total Bilirubin 1.1 mg/dL (0.2-1.3) 07/27/18 14:44 AST 23 U/L (17-59) 07/27/18 14:44 ALT 32 U/L (21-72) 07/27/18 14:44 Alkaline Phosphatase 80 U/L (38-126) 07/27/18 14:44 Total Protein 8.0 g/dL (6.3-8.3) 07/27/18 14:44 Albumin 4.0 g/dL (3.5-5.0) 07/27/18 14:44 Globulin 4.0 gm/dL (2.2-3.9) H 07/27/18 14:44 Albumin/Globulin Ratio 1.0 (1.0-2.1) 07/27/18 14:44 Lipase 36 U/L (23-300) 07/27/18 14:44 Venous Blood Potassium 3.4 mmol/L (3.6-5.2) L 07/28/18 00:45 Urine Color Yellow (YELLOW) 07/28/18 14:45 Urine Clarity Clear (Clear) 07/28/18 14:45 Urine pH 6.0 (5.0-8.0) 07/28/18 14:45 Ur Specific Story 1.021 (1.003-1.030) 07/28/18 14:45 Urine Protein 1+ mg/dL (NEGATIVE) H 07/28/18 14:45 Urine Glucose (UA) Normal mg/dL (Normal) 07/28/18 14:45 Urine Ketones 2+ mg/dL (NEGATIVE) H 07/28/18 14:45 Urine Blood 1+ (NEGATIVE) H 07/28/18 14:45 Urine Nitrate Negative (NEGATIVE) 07/28/18 14:45 Urine Bilirubin Negative (NEGATIVE) 07/28/18 14:45 Urine Urobilinogen Normal mg/dL (0.2-1.0) 07/28/18 14:45 Ur Leukocyte Esterase Neg Clemencia/uL (Negative) 07/28/18 14:45 Urine WBC (Auto) 2 /hpf (0-5) 07/28/18 14:45 Urine RBC (Auto) 14 /hpf (0-3) H 07/28/18 14:45 Ur Squamous Epith Cells < 1 /hpf (0-5) 07/28/18 14:45 Urine Bacteria Rare (<OCC) 07/27/18 14:57 - Hospital Course Hospital Course: 42yo M with PMHx of DM, HTN, hyperlipidemia presented to the ED on 07/27/18 with abdominal pain for 4-5 days. The pain was located in the bilateral lower abdomen and radiates to the groin. CT Abd/Pelvis showed: Sigmoid diverticulosis. Marked thickening of sigmoid colon. Moderate fluid & fat stranding as well as a small amount of free intraperitoneal air at level of sigmoid colon. Concerning for perforated acute diverticulitis vs perforated colitis. Pt denies ever having diverticulitis before. Pt was treated conservatively with NPO, bowel rest, IV antibiotics (Cipro and Flagyl). Pt had numerous episodes of diarrhea which resolved yesterday. Pt tolerated liquid diet and was advanced to full liquids. On hospital day 5, pt was tolerating liquid diet, pain significantly improved, pt ambulating in the halls and requesting to go home. Discharge Exam - Head Exam Head Exam: ATRAUMATIC, NORMAL INSPECTION - Respiratory Exam Respiratory Exam: NORMAL BREATHING PATTERN. absent: Respiratory Distress - Cardiovascular Exam Cardiovascular Exam: +S1, +S2 - GI/Abdominal Exam GI & Abdominal Exam: Soft, Tenderness (very mild tenderness in suprapubic site only (significantly improved)). absent: Distended, Firm, Guarding, Rebound, Rigid - Neurological Exam Neurological exam: Alert, CN II-XII Intact, Oriented x3 - Psychiatric Exam Psychiatric exam: Normal Affect, Normal Mood - Skin Skin Exam: Dry, Normal Color, Warm Discharge Plan - Follow Up Plan Condition: GOOD Disposition: HOME/ ROUTINE Patient education suggested?: Yes Instructions: Diverticulitis (DC) Additional Instructions: Follow up with Dr. Keys in her office in 1 week, call to make appointment Continue liquid diet Take full course of antibiotics (Cipro and Flagyl) at home Return to ED with worsening pain, fever, vomiting Referrals: Tomeka Keys MD [Staff Provider] -
[2018-08-01] MEDS ORDERED: Potassium Chloride 20 mEq ER Tab PO ONE (10:00)
[2018-08-01 11:51] LABS: LYMPHOCYTE 7 % (20-40); MONOCYTE 11 % (0-10); NEUTROPHIL 82 % (50-75); PLATELET ESTIMATE NORMAL (NORMAL); TOTAL CELLS COUNTED 100
[2018-08-01 11:52] LABS: ANISOCYTOSIS SLIGHT; HYPOCHROMIC SLIGHT; LARGE PLATELETS PRESENT; POLYCHROMIC SLIGHT; TOXIC GRANULATION PRESENT
== END 2018-08-01 11:51 | disposition home or self-care (01) | DRG 392 ==
LOC: C.ER 14:09 → C.9E 18:55 → C.6T 19:44
PROVIDERS: ADMIT Specialist; ATTEND Specialist
DX: K57.20 Diverticulitis of large intestine with perforation and abscess without bleeding (principal); Z79.84 Long term (current) use of oral hypoglycemic drugs; E78.5 Hyperlipidemia, unspecified; I10 Essential (primary) hypertension; E11.9 Type 2 diabetes mellitus without complications; D72.829 Elevated white blood cell count, unspecified